=== PATIENT | female | born 1970 | race Caucasian/White ===

== ENCOUNTER 2022-07-08 17:43 | Emergency (ER) | payer SELFPAY ==
[~2022-07-08] VITALS: Ht 162.6 cm; Wt 68.0 kg
--- NOTE | 2022-07-08 21:04 | NUR ---
PT TOELRATING O2 2LPM VIA N/C; SATTING AT 98%. PT AWAKE AND DRINKING WATER. TOLERATING WELL. VSS.
[2022-07-08] MEDS ORDERED: NALO1DIS2 IM (21:50)
[2022-07-08 22:35] VITALS: BP 142/81
--- NOTE | 2022-07-08 22:35 | NUR ---
Patient discharged to home in stable condition. Written and verbal after care instructions given. Patient verbalizes understanding of instruction. pt ambulatory with a steady gait
== END 2022-07-08 22:36 | disposition home or self-care (01) ==
LOC: ER 18:21
DX: T40.2X1A Poisoning by other opioids, accidental (unintentional), initial encounter (principal); Y92.89 Other specified places as the place of occurrence of the external cause

== ENCOUNTER 2022-12-14 14:27 | Emergency (ER) | payer SELFPAY ==
[~2022-12-14] VITALS: Ht 157.5 cm; Wt 63.5 kg
[~2022-12-14 14:27] MED LIST: NALO1DIS2 IM
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
--- NOTE | 2022-12-14 14:54 | NUR ---
BLOOD SAMPLES OBTAINED
[2022-12-14 15:37] LABS: BASOPHILS % (AUTO) 0.4 % (0.0-2.0); HEMATOCRIT 43 % (33-45); HEMOGLOBIN 14.3 g/dL (11.5-14.8); LYMPHOCYTES # (AUTO) 2.8 K/uL (0.8-4.8); LYMPHOCYTES % (AUTO) 27.1 % (20.0-44.0); MEAN CORPUSCULAR HGB CONC 33 g/dl (31.0-36.0); MEAN CORPUSCULAR VOLUME 89 fL (82-100); MONOCYTES # (AUTO) 0.4 K/uL (0.1-1.30); MONOCYTES % (AUTO) 4.3 % (2.0-12.0); NEUTROPHILS # (AUTO) 6.8 K/uL (1.8-8.9); NEUTROPHILS % (AUTO) 66.2 % (43.0-81.0); PLATELET COUNT (AUTO) 387 K/uL (150-450); RED BLOOD CELL COUNT(AUTO) 4.87 MIL/uL (4.0-5.2); WHITE BLOOD COUNT (AUTO) 10.3 K/uL (4.3-11.0)
[2022-12-14 15:56] LABS: ALANINE AMINOTRANSFERASE 36 U/L (12-78); ALBUMIN 3.6 g/dL (3.4-5.0); ALKALINE PHOSPHATASE 98 U/L (46-116); ASPARTATE AMINOTRANSFERASE 22 U/L (15-37); BILIRUBIN,DIRECT 0.1 mg/dL (0.0-0.2); BILIRUBIN,TOTAL 0.3 mg/dL (0.2-1.0); CALCIUM, SERUM 9.1 mg/dL (8.5-10.1); CARBON DIOXIDE 31 mmol/L (21-32); CHLORIDE 103 mmol/L (98-107); GLUCOSE 243 mg/dL (74-106); POTASSIUM 3.5 mmol/L (3.5-5.1); SODIUM SERUM 139 mmol/L (136-145); TOTAL PROTEIN, SERUM 6.8 g/dL (6.4-8.2); UREA NITROGEN, BLOOD 21 mg/dL (7-18)
[2022-12-14 16:00] LABS: ACETAMINOPHEN < 10 ug/ml (10-30); ALCOHOL, BLOOD < 3 mg/dL (0-0)
--- NOTE | 2022-12-14 19:51 | NUR ---
PT ASKING TO LEAVE. PER DR CHEEMA PT IS DISCHARGED PENDING D/C PAPERS, IV REMOVED. PT AMBULATORY STEADY GAIT. NOT IN ANY DISTRESS, VSS
[2022-12-14 21:47] VITALS: BP 128/70
== END 2022-12-14 19:51 | disposition home or self-care (01) ==
LOC: ER 14:30
DX: R40.4 Transient alteration of awareness (principal); T40.601A Poisoning by unspecified narcotics, accidental (unintentional), initial encounter; F17.200 Nicotine dependence, unspecified, uncomplicated; Z59.00 Homelessness unspecified; Y92.89 Other specified places as the place of occurrence of the external cause
CPT/HCPCS: 36415; 71045-TC; 80048-TC; 80076-TC; 84484-TC; 85025-TC; G0480